=== PATIENT | male | born 2000 | race Caucasian/White ===

== ENCOUNTER 2023-03-16 20:46 | Emergency (ER) | payer BC ==
[2023-03-16] MEDS ORDERED: BENZ1LOZ58 PO (21:37)
[2023-03-16] MEDS ORDERED: ACET-2605 PO (21:37)
[2023-03-16] MEDS ORDERED: AZIT1PAC9 PO (21:37)
[2023-03-16] MEDS ORDERED: IBUP-1955 PO (21:37)
[2023-03-16] MEDS ORDERED: METH4TAB3 PO (21:37)
[2023-03-16] MEDS ORDERED: ONDA4TAB5 PO (21:39)
== END 2023-03-16 22:17 | disposition home or self-care (01) ==
LOC: ER 20:57
DX: J06.9 Acute upper respiratory infection, unspecified (principal); Z20.822 Contact with and (suspected) exposure to COVID-19
CPT/HCPCS: 99283; 87426; 87804 ×2; 87880; C9803; 86403-TC

== ENCOUNTER 2023-11-24 01:41 | Emergency (ER) | payer BC ==
[~2023-11-24] VITALS: Ht 154.9 cm; Wt 50.3 kg
[~2023-11-24 01:41] MED LIST: ACET-2605 PO; AZIT1PAC9 PO; BENZ1LOZ58 PO; IBUP-1955 PO; METH4TAB3 PO; ONDA4TAB5 PO
[2023-11-24 02:58] VITALS: BP 128/80; TEMP 98.4
[2023-11-24] MEDS ORDERED: KETO10TA2 PO (03:20)
[2023-11-24] MEDS ORDERED: DOXY-326 PO (03:20)
[2023-11-24] MEDS ORDERED: KETOROLAC TROMETHAMINE INJ 30 MG/ML VIAL ONE (03:29)
[2023-11-24] MEDS ORDERED: CEFTRIAXONE 500 MG VIAL ONE (03:29)
[2023-11-24] MEDS ORDERED: DOXYCYCLINE HYCLATE (100 MG) 100 MG TABLET ONE (03:30)
[2023-11-24] MEDS: DOXYCYCLINE HYCLATE (100 MG) 100 MG TABLET PO ONE (03:45)
[2023-11-24] MEDS: KETOROLAC TROMETHAMINE INJ 60 MG/2 ML VIAL IM ONE (03:45)
[2023-11-24] MEDS: CEFTRIAXONE 500 MG VIAL IM ONE (03:45)
[2023-11-24 04:32] VITALS: O2SAT 98
== END 2023-11-24 04:33 | disposition home or self-care (01) ==
LOC: ER 01:51
DX: K62.89 Other specified diseases of anus and rectum (principal); N50.89 Other specified disorders of the male genital organs; Z79.1 Long term (current) use of non-steroidal anti-inflammatories (NSAID); Z79.899 Other long term (current) drug therapy
CPT/HCPCS: 99284; 96372 ×2; J0696; J1885

== ENCOUNTER 2023-11-27 17:33 | Emergency (ER) | payer BC ==
[~2023-11-27] VITALS: Ht 154.9 cm; Wt 50.3 kg
[~2023-11-27 17:33] MED LIST changes: +DOXY-326 PO; +KETO10TA2 PO
[2023-11-27 17:42] VITALS: BP 162/85; TEMP 98.6; O2SAT 100
[2023-11-27] MEDS ORDERED: LORA-258 PO (18:09)
[2023-11-27] MEDS ORDERED: ACYC400T19 PO (18:09)
== END 2023-11-27 21:17 | disposition home or self-care (01) ==
LOC: ER 17:33
DX: A60.00 Herpesviral infection of urogenital system, unspecified (principal); Z79.1 Long term (current) use of non-steroidal anti-inflammatories (NSAID); Z79.899 Other long term (current) drug therapy

== ENCOUNTER 2023-12-12 21:58 | Emergency (ER) | payer BC ==
[~2023-12-12] VITALS: Ht 157.5 cm; Wt 74.8 kg
[~2023-12-12 21:58] MED LIST changes: +ACYC400T19 PO; +LORA-258 PO
--- NOTE | 2023-12-12 22:07 | NUR ---
micah co seeking refill of acyclovir
--- NOTE | 2023-12-12 22:27 | NUR ---
DR. HICKMAN AT BEDSIDE
[2023-12-12 22:32] VITALS: BP 135/91; TEMP 98.5; O2SAT 98
[2023-12-12] MEDS ORDERED: VALA10002 PO (22:32)
--- NOTE | 2023-12-12 22:48 | NUR ---
Patient discharged to home in stable condition. Written and verbal after care instructions given. Patient verbalizes understanding of instruction.
== END 2023-12-12 22:48 | disposition home or self-care (01) ==
LOC: ER 22:03
DX: B00.9 Herpesviral infection, unspecified (principal); Z76.0 Encounter for issue of repeat prescription

== ENCOUNTER 2024-01-02 02:11 | Emergency (ER) | payer BC ==
[~2024-01-02] VITALS: Ht 154.9 cm; Wt 52.6 kg
[~2024-01-02 02:11] MED LIST changes: +VALA10002 PO
[2024-01-02 02:47] VITALS: BP 100/59; TEMP 98
[2024-01-02] MEDS ORDERED: VALA100026 PO (03:33)
[2024-01-02 03:41] VITALS: O2SAT 98
[2024-01-02] MEDS: VALACYCLOVIR HCL 500 MG TABLET PO ONE (03:41)
== END 2024-01-02 03:45 | disposition home or self-care (01) ==
LOC: ER 02:11
DX: A60.9 Anogenital herpesviral infection, unspecified (principal); K92.1 Melena

== ENCOUNTER 2024-02-10 18:43 | Emergency (ER) | payer BC ==
[~2024-02-10] VITALS: Ht 157.5 cm; Wt 52.2 kg
[~2024-02-10 18:43] MED LIST changes: +VALA100026 PO
[2024-02-10 19:25] VITALS: TEMP 98
[2024-02-10] MEDS ORDERED: LIDO30AD10 TP (22:18)
[2024-02-10] MEDS ORDERED: ACET-2030 PO (22:18)
[2024-02-10] MEDS ORDERED: CYCL10TA9 PO (22:18)
[2024-02-10] MEDS ORDERED: ACETAMINOPHEN ES 500 MG TABLET ONE (22:23)
[2024-02-10] MEDS ORDERED: IBUPROFEN 400 MG TABLET ONE (22:23)
[2024-02-10] MEDS ORDERED: CYCLOBENZAPRINE 10 MG TABLET ONE (22:23)
[2024-02-10] MEDS ORDERED: LIDOCAINE 5% (PATCH) 1 EA PATCH TP ONE (22:23)
[2024-02-10] MEDS: CYCLOBENZAPRINE 10 MG TABLET PO ONE (22:25)
[2024-02-10] MEDS: ACETAMINOPHEN ES 500 MG TABLET PO ONE (22:25)
[2024-02-10] MEDS: IBUPROFEN 400 MG TABLET PO ONE (22:25)
[2024-02-10] MEDS: LIDOCAINE 5% (PATCH) 1 EA PATCH TP SCH (22:26)
[2024-02-10 22:40] VITALS: BP 115/70; O2SAT 99
== END 2024-02-10 22:40 | disposition home or self-care (01) ==
LOC: ER 19:08
DX: S16.1XXA Strain of muscle, fascia and tendon at neck level, initial encounter (principal); M62.838 Other muscle spasm; R51.9 Headache, unspecified; V43.52XA Car driver injured in collision with other type car in traffic accident, initial encounter; Y93.89 Activity, other specified; Y92.488 Other paved roadways as the place of occurrence of the external cause; Y99.8 Other external cause status